=== PATIENT | female | born 1995 ===

== ENCOUNTER 2017-06-10 16:16 | Emergency (ER) | payer SELFPAY ==
[2017-06-10 16:17] VITALS: BMI 29.2
[2017-06-10 16:58] VITALS: O2SAT 99
--- NOTE | 2017-06-10 18:00 | ED PDOC ---
Arrival/HPI - General Chief Complaint: ENT Problem Time Seen by Provider: 06/10/17 16:56 Historian: Patient - History of Present Illness Narrative History of Present Illness (Text): 06/10/17 19:28 21-year-old female presents today with a four-day history of sore throat. Patient states symptoms have worsened. Patient now complaining of worsening pain with swallowing. Patient denies trismus or drooling. Complaining of subjective fevers at home. States she took NyQuil without improvement. Patient denies sick contacts. Patient states she's noticed white patches on the back of the throat. No abdominal pain. No vomiting. Patient states is difficult to talk due to the severe pain. Symptom Onset: Gradual Symptom Course: Worsening Quality: Stabbing, Burning, Throbbing Severity Level: 8 Past Medical History - Provider Review Nursing Documentation Reviewed: Yes - Travel History Have you recently traveled outside [place] w/in the past 3 mons?: No - Infectious Disease Hx of Infectious Diseases: None - Tetanus Immunization Tetanus Immunization: Unknown - Reproductive Menopause: No - Cardiac Hx Cardiac Disorders: No - Pulmonary Hx Bronchitis: Yes - Neurological Hx Neurological Disorder: No - HEENT Hx HEENT Disorder: No - Renal Hx Renal Disorder: No - Endocrine/Metabolic Hx Endocrine Disorders: No - Hematological/Oncological Hx Blood Disorders: No - Integumentary Hx Dermatological Disorder: Yes Hx Eczema: Yes (ARMS/ANTECUB) - Musculoskeletal/Rheumatological Hx Musculoskeletal Disorders: No Hx Falls: No - Gastrointestinal Hx Gastrointestinal Disorders: No - Genitourinary/Gynecological Hx Genitourinary Disorders: No - Psychiatric Hx Anxiety: Yes Hx Depression: Yes Hx Substance Use: No - Anesthesia Hx Anesthesia: No Family/Social History - Physician Review Nursing Documentation Reviewed: Yes Family/Social History: Unknown Family HX Smoking Status: Light Smoker < 10 Cigarettes Daily Hx Alcohol Use: Yes (SOCIALLY) Frequency of alcohol use: Socially Hx Substance Use: No Allergies/Home Meds Allergies/Adverse Reactions: Allergies No Known Allergies Allergy (Verified 06/10/17 16:39) Review of Systems - Review of Systems Constitutional: Fevers. absent: Fatigue ENT: Sore Throat. absent: Sinus Congestion Respiratory: absent: SOB, Cough Cardiovascular: absent: Chest Pain, Palpitations Gastrointestinal: absent: Abdominal Pain, Diarrhea, Nausea, Vomiting Genitourinary Female: absent: Dysuria Musculoskeletal: absent: Arthralgias Skin: absent: Rash Neurological: absent: Headache, Dizziness Psychiatric: absent: Anxiety, Depression Physical Exam Vital Signs Reviewed: Yes Vital Signs Temp Pulse Resp BP Pulse Ox 06/10/17 18:34 88 18 99 06/10/17 18:28 98.7 F 94 H 17 115/75 99 06/10/17 16:58 98.8 F 101 H 18 99 06/10/17 16:34 98.8 F 101 H 18 136/67 100 Temperature: Afebrile Blood Pressure: Normal Pulse: Regular Respiratory Rate: Normal Appearance: Positive for: Well-Appearing, Non-Toxic, Uncomfortable Pain Distress: None Mental Status: Positive for: Alert and Oriented X 3 - Systems Exam Head: Present: Atraumatic Extroacular Muscles: Present: EOMI Conjunctiva: Present: Normal Ears: Present: Normal, NORMAL TM. No: Erythema Mouth: Present: Moist Mucous Membranes, Normal Lips, Normal Tounge. No: Drooling, Trismus Pharnyx: Present: ERYTHEMA, EXUDATE. No: TONSILS ENLARGED, Peritonsilar Swelling, Uvular Deviation, Muffled/Hoarse Voice, Strider, Soft Palate/Uvular Edema Nose (External): Present: Atraumatic Nose (Internal): Present: Normal Inspection Neck: Present: Normal Range of Motion, Lymphadenopathy, Trachea Midline Respiratory/Chest: Present: Clear to Auscultation, Good Air Exchange. No: Respiratory Distress, Accessory Muscle Use Cardiovascular: Present: Tachycardic. No: Murmurs Abdomen: No: Tenderness Back: Present: Normal Inspection Upper Extremity: Present: Normal Inspection Neurological: Present: GCS=15 Skin: Present: Warm, Dry, Normal Color. No: Rashes Psychiatric: Present: Alert, Oriented x 3 Medical Decision Making ED Course and Treatment: 06/10/17 19 Patient is nontoxic well appearing in no distress. slightly tachycardic Tolerating p.o. fluids and solids Toradol 60 mg IM amoxicillin 500mg po Decadron 10 mg IM Patient reassessment: Patient feeling much better after medications, vital signs stable. Moist mucous membranes. vitals stable. I advised follow up with primary care physician within the next 2 days, advised to increase fluids take medications as prescribed and return if symptoms worsen persist or if new symptoms develop Patient verbalizes understanding of discharge instructions and need for immediate followup. IMPRESSION; pharyngitis Motrin every 6 hours as needed for pain/fever reduction Increase fluids Amoxicillin 3 times daily 10 days Follow up primary care physician within the next 2 days Follow-up with the ENT specialist within the next 2 days Saltwater gargles, throat lozenges Return immediately if symptoms worsen persist or if new symptoms develop - Medication Orders Current Medication Orders: Discontinued Medications Amoxicillin (Amoxil 500 Mg Cap) 500 mg PO STAT STA PRN Reason: Protocol Stop: 06/10/17 16:58 Last Admin: 06/10/17 17:33 Dose: 500 mg Dexamethasone (Decadron Inj) 10 mg IM STAT STA Stop: 06/10/17 16:57 Last Admin: 06/10/17 17:32 Dose: 10 mg IM Administration Charges Document 06/10/17 17:32 [email or web address] (Rec: 06/10/17 17:32 [email or web address] [facility] [email or web address] Injection Site MAR Injection Site Right Deltoid Charges for Administration # of IM Administrations 1 Ketorolac Tromethamine (Toradol) 60 mg IM STAT STA Stop: 06/10/17 16:57 Last Admin: 06/10/17 17:32 Dose: 60 mg MAR Pain Assessment Document 06/10/17 17:32 [email or web address] (Rec: 06/10/17 17:33 [email or web address] [facility] [place] [place] Pain Reassessment Is this a pain reassessment? No Presence of Pain Presence of Pain Yes Pain Scale Used Pain Scale Used Numeric Location Pain Location Body Site Throat Description Description Constant Intensity of Pain at present 9 Pain Behavior Moaning Facial Grimacing Aggravating Factors Changing Position Alleviating Factors Medication IM Administration Charges Document 06/10/17 17:32 [email or web address] (Rec: 06/10/17 17:33 [email or web address] [id number] Injection Site MAR Injection Site Left Deltoid Charges for Administration # of IM Administrations 1 Disposition/Present on Arrival - Present on Arrival Any Indicators Present on Arrival: No History of DVT/PE: No History of Uncontrolled Diabetes: No Urinary Catheter: No History of Decub. Ulcer: No History Surgical Site Infection Following: None - Disposition Have Diagnosis and Disposition been Completed?: Yes Diagnosis: Pharyngitis Disposition: HOME/ ROUTINE Disposition Time: 18:00 Patient Plan: Discharge Condition: GOOD Discharge Instructions (ExitCare): Pharyngitis (ED) Additional Instructions: Motrin every 6 hours as needed for pain/fever reduction Increase fluids Amoxicillin 3 times daily 10 days Follow up primary care physician within the next 2 days Follow-up with the ENT specialist within the next 2 days Saltwater gargles, throat lozenges Return immediately if symptoms worsen persist or if new symptoms develop Prescriptions: Amoxicillin 500 mg PO TID #30 tab Ibuprofen [Motrin] 600 mg PO Q6H PRN #20 tab PRN Reason: pain/fever reduction Referrals: Jeb Thayer DO [Primary Care Provider] - Follow up with primary Giuseppe Moseley DO [Doctor Osteopathy] - Follow up with primary Forms: [employer] ([place]akh), WORK NOTE
[2017-06-10 18:29] VITALS: BP 115/75; TEMP 98.7
[2017-06-10 18:35] VITALS: PULSE 88; RESP 18
== END 2017-06-10 18:35 | disposition home or self-care (01) ==
LOC: ED 16:16
DX: J02.9 Acute pharyngitis, unspecified (principal)
CPT/HCPCS: 96372; 99283; J1100; J1885

== ENCOUNTER 2017-09-04 21:45 | Emergency (ER) | payer SELFPAY ==
[2017-09-04 22:03] VITALS: BMI 31.3
--- NOTE | 2017-09-04 22:08 | ED PDOC ---
Arrival/HPI - General Chief Complaint: Headache Time Seen by Provider: 09/04/17 21:51 Historian: Patient - History of Present Illness Narrative History of Present Illness (Text): 09/04/17 22:08 Kathy Marrufo is a 22 year old female who presents to the Emergency department complaining of frontal headache for the past few days. Patient reports she took baby aspirin and Motrin 800mg at home without significant relief. Patient denies any back pain, neck pain, dizziness, vision changes, weakness/numbness, fever, chills, nausea, vomiting, headache, or any other complaints. Time/Duration: < week (few days) Symptom Onset: Gradual Symptom Course: Unchanged Activities at Onset: Light Context: Home Past Medical History - Provider Review Nursing Documentation Reviewed: Yes - Infectious Disease Hx of Infectious Diseases: None - Tetanus Immunization Tetanus Immunization: Unknown - Cardiac Hx Cardiac Disorders: No - Pulmonary Hx Asthma: Yes - Neurological Hx Neurological Disorder: No - HEENT Hx HEENT Disorder: No - Renal Hx Renal Disorder: No - Endocrine/Metabolic Hx Endocrine Disorders: No - Hematological/Oncological Hx Blood Disorders: No - Integumentary Hx Dermatological Disorder: Yes Hx Eczema: Yes (ARMS/ANTECUB) - Musculoskeletal/Rheumatological Hx Musculoskeletal Disorders: No Hx Falls: No - Gastrointestinal Hx Gastrointestinal Disorders: No - Genitourinary/Gynecological Hx Genitourinary Disorders: No - Psychiatric Hx Anxiety: Yes Hx Depression: Yes Hx Substance Use: No - Anesthesia Hx Anesthesia: No Hx Anesthesia Reactions: No Hx Malignant Hyperthermia: No Family/Social History - Physician Review Nursing Documentation Reviewed: Yes Family/Social History: Unknown Family HX Smoking Status: Light Smoker < 10 Cigarettes Daily Hx Alcohol Use: Yes (SOCIALLY) Hx Substance Use: No Allergies/Home Meds Allergies/Adverse Reactions: Allergies No Known Allergies Allergy (Verified 06/10/17 16:39) Home Medications: Home Meds Medication Instructions Recorded Confirmed Naproxen Sodium [Aleve] 220 mg PO PRN PRN 09/04/17 09/04/17 Review of Systems - Physician Review All systems were reviewed & negative as marked: Yes - Review of Systems Constitutional: Normal. absent: Fevers Eyes: Normal ENT: Normal Respiratory: Normal. absent: SOB, Cough Cardiovascular: Normal. absent: Chest Pain Gastrointestinal: Normal. absent: Abdominal Pain, Diarrhea, Nausea, Vomiting Genitourinary Female: Normal. absent: Dysuria, Frequency, Hematuria, Urine Output Changes Musculoskeletal: Normal. absent: Back Pain, Neck Pain Skin: Normal. absent: Rash Neurological: Headache. absent: Dizziness Endocrine: Normal Hemo/Lymphatic: Normal Psychiatric: Normal Physical Exam Vital Signs Reviewed: Yes Vital Signs Temp Pulse Resp BP Pulse Ox 09/05/17 00:02 92 H 18 128/81 100 09/04/17 22:03 98.7 F 102 H 18 148/88 97 Temperature: Afebrile Blood Pressure: Normal Pulse: Regular Respiratory Rate: Normal Appearance: Positive for: Well-Appearing, Non-Toxic, Comfortable Pain Distress: None Mental Status: Positive for: Alert and Oriented X 3 - Systems Exam Head: Present: Atraumatic, Normocephalic Pupils: Present: PERRL Extroacular Muscles: Present: EOMI Conjunctiva: Present: Normal Ears: Present: Normal, NORMAL TM, Normal Canal. No: Erythema, TM Bulging, Fluid Mouth: Present: Moist Mucous Membranes Pharnyx: Present: Normal. No: ERYTHEMA, EXUDATE, TONSILS ENLARGED, Peritonsilar Swelling, Uvular Deviation, Muffled/Hoarse Voice, Strider, Soft Palate/Uvular Edema Nose (External): Present: Atraumatic Nose (Internal): Present: Normal Inspection Neck: Present: Normal Range of Motion. No: Meningeal Signs, MIDLINE TENDERNESS , Paraspinal Tenderness Respiratory/Chest: Present: Clear to Auscultation, Good Air Exchange. No: Respiratory Distress, Accessory Muscle Use Cardiovascular: Present: Regular Rate and Rhythm, Normal S1, S2. No: Murmurs Abdomen: Present: Normal Bowel Sounds. No: Tenderness, Distention, Peritoneal Signs Back: Present: Normal Inspection Upper Extremity: Present: Normal Inspection. No: Cyanosis, Edema Lower Extremity: Present: Normal Inspection. No: Edema Neurological: Present: GCS=15, CN II-XII Intact, Speech Normal, Motor Func Grossly Intact, Normal Sensory Function, Normal Cerebellar Funct, Gait Normal, Memory Normal Skin: Present: Warm, Dry, Normal Color. No: Rashes Psychiatric: Present: Alert, Oriented x 3, Normal Insight, Normal Concentration Medical Decision Making ED Course and Treatment: 09/04/17 22:08 Impression: 22 year old female complaining of frontal headache for past few days. Differential Diagnosis included but are not limited to: migraine vs. tension headache vs. cerebral bleed Plan: -- CT Head w/o contrast -- Benadryl -- Reglan -- Decadron -- Reassess and disposition Prior Visits: Notes and results from previous visits were reviewed. On 06/10/2017, pt was seen in the Emergency department for sore throat and subjective fever. Pt was d/c home. Progress Notes: 09/04/17 23:27 Reviewed radiology, CT Head shows: LIMITATIONS: Mild streak/motion artifact. BRAIN: Punctate calcification in the left basal ganglia, which may be physiologic in nature. No significant acute abnormality identified. No acute hemorrhage seen within the brain. No acute extraaxial fluid collections visualized. No evidence of significant mass effect within the brain. Normal sam-white matter differentiation. VENTRICLES: No evidence of significant hydrocephalus. BONES/JOINTS: No acute fractures or other acute bony abnormality noted. SOFT TISSUES: No acute abnormality of the visualized soft tissues is seen. SINUSES: Visualized paranasal sinuses appear clear. MASTOID AIR CELLS: Mastoid air cells appear clear. IMPRESSION: - No acute findings seen within the brain. - See above for remaining findings. 09/05/17 01:30 On re-evaluation, patient feels better and is in no acute distress. I have discussed the results and plan with the patient, who expresses understanding. Patient in agreement with plan to be discharged home. Patient is stable for discharge. Patient was instructed to follow up with physician or return if symptoms worsen or new concerning symptoms arise. - RAD Interpretation Radiology Orders: 09/04/17 22:09 HEAD W/O CONTRAST [CT] Stat Analysis Engineer: Radiologist - Medication Orders Current Medication Orders: Discontinued Medications Dexamethasone (Decadron Inj) 10 mg IVP ONCE ONE Stop: 09/04/17 22:10 Last Admin: 09/04/17 22:27 Dose: 10 mg IVP Administration Document 09/04/17 22:27 AD (Rec: 09/04/17 22:27 AD [facility] [id number] Charges for Administration # of IVP Administrations 1 Diphenhydramine HCl (Benadryl) 25 mg IVP ONCE ONE Stop: 09/04/17 22:10 Last Admin: 09/04/17 22:27 Dose: 25 mg IVP Administration Document 09/04/17 22:27 AD (Rec: 09/04/17 22:27 AD [facility] [id number]) Charges for Administration # of IVP Administrations 1 Ketorolac Tromethamine (Toradol) 30 mg IVP ONCE ONE Stop: 09/04/17 23:49 Last Admin: 09/05/17 00:02 Dose: 30 mg MAR Pain Assessment Document 09/05/17 00:02 AD (Rec: 09/05/17 00:02 AD [facility] [id number]) Pain Reassessment Is this a pain reassessment? No Presence of Pain Presence of Pain Yes Pain Scale Used Pain Scale Used Numeric Location Pain Location Body Detonator Assembler Description Description Constant Intensity of Pain at present 8 Pain Behavior Facial Grimacing IVP Administration Document 09/05/17 00:02 AD (Rec: 09/05/17 00:02 AD [facility] [id number]) Charges for Administration # of IVP Administrations 1 Metoclopramide HCl (Reglan) 10 mg IVP ONCE ONE Stop: 09/04/17 22:10 Last Admin: 09/04/17 22:27 Dose: 10 mg IVP Administration Document 09/04/17 22:27 AD (Rec: 09/04/17 22:27 AD [facility] [id number]) Charges for Administration # of IVP Administrations 1 - Scribe Statement The provider has reviewed the documentation as recorded by the Hoda Payne Provider Scribe Attestation: All medical record entries made by the Scribe were at my direction and personally dictated by me. I have reviewed the chart and agree that the record accurately reflects my personal performance of the history, physical exam, medical decision making, and the department course for this patient. I have also personally directed, reviewed, and agree with the discharge instructions and disposition. Disposition/Present on Arrival - Present on Arrival Any Indicators Present on Arrival: No History of DVT/PE: No History of Uncontrolled Diabetes: No Urinary Catheter: No History of Decub. Ulcer: No History Surgical Site Infection Following: None - Disposition Have Diagnosis and Disposition been Completed?: Yes Diagnosis: Migraine headache Disposition: HOME/ ROUTINE Disposition Time: 01:30 Patient Plan: Discharge Patient Problems: Current Active Problems Problem Status Onset Migraine headache Acute Condition: GOOD Discharge Instructions (ExitCare): Migraine Headache (ED) Additional Instructions: Take meds as prescribed/Rest/follow up with your doctor this week Prescriptions: Acetaminophen/Butalbital/Caf [Fioricet] 1 tab PO Q6 PRN #16 tab PRN Reason: Headache Referrals: [employer] [facility], [Primary Care Provider] - Follow up with primary Forms: [email or web address] ([place])
[2017-09-04] MEDS ORDERED: DiphenhydrAMINE 50 mg/ml Inj IVP ONE (22:09)
--- NOTE | 2017-09-04 23:23 | CT ---
EXAM: CT Head Without Intravenous Contrast EXAM DATE/TIME: 09/04/2017 10:09 PM CLINICAL HISTORY: 22 years old, female; Pain; Headache; Headache not specified TECHNIQUE: Axial computed tomography images of the head/brain without intravenous contrast. All CT scans at this facility use one or more dose reduction techniques, viz.: automated exposure control; ma/kV adjustment per patient size (including targeted exams where dose is matched to indication; i.e. head); or iterative reconstruction technique. Coronal and sagittal reformatted images were created and reviewed. COMPARISON: No relevant prior studies available. FINDINGS: LIMITATIONS: Mild streak/motion artifact. BRAIN: Punctate calcification in the left basal ganglia, which may be physiologic in nature. No significant acute abnormality identified. No acute hemorrhage seen within the brain. No acute extra-axial fluid collections visualized. No evidence of significant mass effect within the brain. Normal sam-white matter differentiation. VENTRICLES: No evidence of significant hydrocephalus. BONES/JOINTS: No acute fractures or other acute bony abnormality noted. SOFT TISSUES: No acute abnormality of the visualized soft tissues is seen. SINUSES: Visualized paranasal sinuses appear clear. MASTOID AIR CELLS: Mastoid air cells appear clear. IMPRESSION: - No acute findings seen within the brain. - See above for remaining findings.
[2017-09-05 01:38] VITALS: BP 118/64; PULSE 81; RESP 17; TEMP 98.2; O2SAT 98
== END 2017-09-05 01:38 | disposition home or self-care (01) ==
LOC: ED 21:45
DX: G43.909 Migraine, unspecified, not intractable, without status migrainosus (principal)
CPT/HCPCS: 70450; 96374; 96375; 99285; J1100; J1200; J1885; J2765